=== PATIENT | female | born 1975 | race Caucasian/White ===

== ENCOUNTER → 2016-12-10 | Outpatient (CLI) | payer BC ==
[~2016-12-10] MED LIST: ALBUTEROL17 GM INH; CELEBREX PO; COUMADIN; COUMADIN PO; LOVENOX SUBQ
[2016-12-10 15:57] LABS: INR 2.6; PROTHROMBIN TIME (PATIENT) 28.1 SECONDS (10.0-11.7)
== END | disposition home or self-care (01) ==
LOC: CAMB 14:39
PROVIDERS: Surgery
DX: Z01.812 Encounter for preprocedural laboratory examination (principal); K43.9 Ventral hernia without obstruction or gangrene
CPT/HCPCS: 36415; 85610

== ENCOUNTER → 2016-12-17 | Day surgery (SDC) | payer BC ==
--- NOTE | ~2016-12-17 | OR ---
Unit #: [id number] #: [id number] Patient: ADITYA WILSON [id number] [place], [place] [address] [id number] O MR#: [id number] NAME: ADITYA WILSON ROOM: Date of Procedure: 12/17/2016 Admission Date: 12/17/2016 Surgeon: John De Los Santos M.D. : 1975 Attending Physician: John De Los Santos M.D. Primary Care Physician: Bertha Luque M.D. OPERATIVE REPORT PREOPERATIVE DIAGNOSIS Incarcerated incisional hernia. POSTOPERATIVE DIAGNOSIS 4 cm incarcerated incisional hernia, midline. PROCEDURE PERFORMED Laparoscopic ventral hernia repair of incarcerated incisional hernia with 8 x 6 Ventralight mesh. COLOR CORRECTOR Vira. ANESTHESIA General endotracheal anesthesia. ESTIMATED BLOOD LOSS Minimal. IV FLUIDS 800 crystalloid. COMPLICATIONS None. INDICATIONS FOR PROCEDURE The patient is a 41-year-old lady, who presents with incarcerated incisional hernia. DESCRIPTION OF PROCEDURE The patient was taken to the operating theater and placed in supine position. General anesthesia was induced. The abdomen was prepped and draped. A 5-mm Optiview trocar was placed in the left upper quadrant without difficulty. The abdomen was insufflated to 15 mmHg with CO2. Under direct vision, I placed a left lower quadrant 10 mm, right upper quadrant 5 mm, right lower quadrant 5 mm. General inspection of the abdomen revealed an incarcerated hernia with omentum. This was reduced measuring approximately 3.5 cm in diameter. I then placed an 8 x 6 Ventralight mesh. This was held in place with single-stranded Vicryl sutures and delivered transcutaneous. I then secured with SorbaFix Tacker with each tack being 1.5 cm from previous tack. This covered the defect by at least 5 cm in all circumference. Hemostasis was adequate. I Unit #: [id number] #: [id number] Patient: ADITYA WILSON removed the ports under direct vision with no evidence of abdominal hemorrhage. The wound was closed with 4-0 Vicryl. The sutures were cut at skin level. The patient tolerated the procedure well and sent to recovery room in good condition. Dictated by... Maya Chris/steve TD: 12/17/2016 13:56 JOB #: [id number] OPERATIVE REPORT Page 1 of 1 X John De Los Santos MD PROCEDURE OPERATIVE NOTE
[2016-12-17 06:36] LABS: INR 1.2
[2016-12-17 06:42] LABS: PROTHROMBIN TIME (PATIENT) 13.4 SECONDS (10.0-11.7)
== END | disposition home or self-care (01) ==
LOC: CSUR 05:23
PROVIDERS: Surgery
DX: K43.0 Incisional hernia with obstruction, without gangrene (principal); J45.909 Unspecified asthma, uncomplicated; E66.01 Morbid (severe) obesity due to excess calories; E78.5 Hyperlipidemia, unspecified; Z82.49 Family history of ischemic heart disease and other diseases of the circulatory system; Z68.43 Body mass index [BMI] 50.0-59.9, adult; Z80.0 Family history of malignant neoplasm of digestive organs; Z98.890 Other specified postprocedural states; Z86.711 Personal history of pulmonary embolism; Z79.01 Long term (current) use of anticoagulants; Z98.51 Tubal ligation status; Z87.891 Personal history of nicotine dependence
CPT/HCPCS: 84703; 85610; C1787; J0131; J0330; J0690; J1100; J1650; J2250; J2405; J2710; J3010